=== PATIENT | female | born 1955 | race Caucasian/White ===

== ENCOUNTER 2024-03-19 09:14 | Emergency (ER) | payer MEDICARE, OTHER ==
[2024-03-19] VITALS (12 sets, daily range): BP systolic 135–171; BP diastolic 71–134
[~2024-03-19] VITALS: Ht 170.2 cm; Wt 83.9 kg
== END 2024-03-19 11:19 | disposition home or self-care (01) ==
LOC: ED 09:14
DX: I10 Essential (primary) hypertension (principal); Z20.822 Contact with and (suspected) exposure to COVID-19

== ENCOUNTER 2024-04-18 08:53 | Day surgery (SDC) | payer MEDICARE, BC ==
[~2024-04-18 08:53] MED LIST: DIOVAN HCT160 MG/25 PO; EZETIMIBE10 MG; LEVOTHYROXIN88 MC1 PO; LOVASTATIN40 M1 PO
[2024-04-18] MEDS ORDERED: LACTATED RINGER'S 1,000 ML IV ONE (09:11)
[2024-04-18] MEDS ORDERED: FAMOTIDINE 10MG/ML 2ML SDV IV ONE (09:11)
[2024-04-18] MEDS ORDERED: ASPIRIN 81 LOW81 MG (09:26)
[2024-04-18] MEDS ORDERED: OMEPRAZOLE DR40 MG (09:26)
[2024-04-18] MEDS ORDERED: NORVASC PO (09:26)
[2024-04-18] MEDS ORDERED: D31000 UNIT PO (09:27)
[2024-04-18] MEDS ORDERED: CENTRUM SILVER1 TA1 (09:27)
[2024-04-18] MEDS ORDERED: ALLERGY RELIEF 25 MG (09:27)
[2024-04-18] MEDS ORDERED: AZELASTINE HYDR1 SPR (09:28)
[2024-04-18 11:13] VITALS: BP 150/77
[2024-04-18] MEDS ORDERED: PROPOFOL 200 MG/20 ML VIAL IV ONE (13:03)
[2024-04-18] MEDS ORDERED: LIDOCAINE HCL 2% 2ML SDV IV ONE (13:03)
[2024-04-18] MEDS ORDERED: GLYCOPYRROLATE 0.2 MG/ML IV ONE (13:03)
== END 2024-04-18 11:20 | disposition home or self-care (01) ==
LOC: ORM 08:53
PROVIDERS: ATTEND Internal Medicine Gastroenterology
PROC: 0DJD8ZZ Inspection of Lower Intestinal Tract, Via Natural or Artificial Opening Endoscopic (ICD-10-PCS; principal; 2024-04-18)
DX: Z12.11 Encounter for screening for malignant neoplasm of colon (principal); K57.30 Diverticulosis of large intestine without perforation or abscess without bleeding; K64.8 Other hemorrhoids; I10 Essential (primary) hypertension; E03.9 Hypothyroidism, unspecified; E78.5 Hyperlipidemia, unspecified; Z95.0 Presence of cardiac pacemaker; Z86.010 Personal history of colon polyps